=== PATIENT | male | born 1995 ===

== ENCOUNTER 2016-12-27 01:34 | Emergency (ER) | payer MEDICAID ==
[2016-12-27 01:49] VITALS: BP 127/69; PULSE 101; RESP 16; O2SAT 99
--- NOTE | 2016-12-27 02:17 | ED PDOC ---
HPI: Chest Pain Time Seen by Provider: 12/27/16 02:10 Chief Complaint (Nursing): Chest Pain Additional Complaint(s): 21yo M with PMHx migraines presents for chest pain. chest pain x1 hour, pressure like, sternal, q30 sec decreased to q2min, 6/10, no radiation, started after having migrain and myalgias to extremities which resolved. Denies smoking , drug use, FHx CAD/AK. Prior h/o chest pain 2012 with similar complaint. Denies fever, chills, n/v, cough, URI symptoms, reflux. Past Medical History Reviewed: Historical Data, Nursing Documentation, Vital Signs Vital Signs: Last Vital Signs Temp 98.9 F 12/27/16 01:48 Pulse 101 H 12/27/16 01:48 Resp 16 12/27/16 01:48 BP 127/69 12/27/16 01:48 Pulse Ox 99 12/27/16 02:31 - Medical History PMH: Migraine - Family History Family History: States: No Known Family Hx - Allergies Allergies/Adverse Reactions: Allergies Allergy/AdvReac Type Severity Reaction Status Date / Time No Known Allergies Allergy Verified 12/27/16 02:15 WIL Risk Score for UA/NSTEMI - WIL Risk Score Age > 64: NO 3 or more CAD Risk Factors: NO Known CAD (Stenosis greater than 50%): NO Aspirin use in past 7 days: NO Severe Angina: NO EKG ST changes greater than 0.5mm: NO Positive Cardiac Marker: NO WIL Score: 0 Risk %: 5% Curb-65 Severity Score - CURB-65 Severity Score Confusion: No Bun >19mg/dl (>7mmol/L): No Respiratory Rate greater than/equal to 30: No Systolic BP <90 or Diastolic BP less than/equal 60mmHg: No Age >64: No Curb-65 Score: 0 Percentage 30-day mortality: 0.6% Review of Systems ROS Statement: Except As Marked, All Systems Reviewed And Found Negative Cardiovascular: Positive for: Chest Pain Neurological: Positive for: Headache Physical Exam - Reviewed Nursing Documentation Reviewed: Yes Vital Signs Reviewed: Yes - Physical Exam Appears: Positive for: Well, No Acute Distress Head Exam: Positive for: ATRAUMATIC, NORMAL INSPECTION Skin: Positive for: Warm, Dry Cardiovascular/Chest: Positive for: Regular Rate, Rhythm. Negative for: Murmur Respiratory: Positive for: Normal Breath Sounds. Negative for: Crackles Gastrointestinal/Abdominal: Positive for: Bowel Sounds, Soft. Negative for: Tenderness Lymphatic: Positive for: Normal Exam. Negative for: Adenopathy Neurologic/Psych: Positive for: Alert, Oriented - Laboratory Results Result Diagrams: 12/27/16 02:26 12/27/16 02:26 - ECG O2 Sat by Pulse Oximetry: 99 Medical Decision Making Medical Decision Makin DDx anxiety, ACS, reflux, MSK CBC, BMP, troponin, U tox EKG NSR, no acute change CXR 0330 reassessment CBC-leukocytosis labs WNL: BMP, troponin, U tox CXR-no acute change d/c home FU PCP to [facility] care Disposition - Clinical Impression Clinical Impression: Atypical chest pain - Disposition Disposition Time: 03:44 Condition: STABLE Instructions: Noncardiac Chest Pain (ED)
[2016-12-27 02:42] LABS: BASO # 0.1 K/uL (0.0-0.2); BASO % 0.5 % (0.0-2.0); EOS % 0.1 % (0.0-4.0); HEMOGLOBIN 15.3 g/dL (12.0-18.0); LYMPH # 1.3 K/uL (1.0-4.3); LYMPH % 5.3 % (20.0-40.0); MEAN CELL VOLUME 87.8 fl (80.0-94.0); MEAN CORPUSCULAR HEMOGLOBIN 30.4 pg (27.0-31.0); MEAN CORPUSCULAR HGB CONC 34.6 g/dL (33.0-37.0); MEAN PLATELET VOLUME 8.4 fl (7.2-11.7); MONO # 1.2 K/uL (0.0-0.8); MONO % 4.8 % (0.0-10.0); NEUT # 22.3 K/uL (1.8-7.0); NEUT % 89.3 % (50.0-75.0); PLATELET COUNT 239 K/uL (130-400); RBC 5.04 Mil/uL (4.40-5.90); RED CELL DISTRIBUTION WIDTH 12.6 % (11.5-14.5)
[2016-12-27 03:00] LABS: BLOOD UREA NITROGEN 11 mg/dl (9-20); CALCIUM 9.7 mg/dL (8.4-10.2); GFR AFRICAN-AMERICAN > 60; GFR NON-AFRICAN AMERICAN > 60
[2016-12-27 03:10] LABS: BARBITURATES, UR NEGATIVE (NEGATIVE); BENZODIAZEPINES, UR NEGATIVE (NEGATIVE); OPIATES, UR NEGATIVE (NEGATIVE); PHENCYCLIDINE, UR NEGATIVE (NEGATIVE)
[2016-12-27 03:37] VITALS: TEMP 98.3
[2016-12-27 04:05] LABS: LYMPHOCYTE 5 % (20-50); MONOCYTE 5 % (0-10); NEUTROPHIL 90 % (42-75); PLATELET ESTIMATE NORMAL (NORMAL); TOTAL CELLS COUNTED 100
--- NOTE | 2016-12-27 10:59 | RAD ---
HISTORY: Chest pain COMPARISON: No prior. TECHNIQUE: Chest PA and lateral FINDINGS: LUNGS: No active pulmonary disease. PLEURA: No significant pleural effusion identified. No pneumothorax apparent. CARDIOVASCULAR: Normal. OSSEOUS STRUCTURES: No significant abnormalities. VISUALIZED UPPER ABDOMEN: Normal. OTHER FINDINGS: None. IMPRESSION: No acute cardiopulmonary disease.
--- NOTE | 2016-12-27 23:25 | CARD ---
APPROVED REPORT EKG Measurement Heart [id number] <Conclusion> Normal sinus rhythm Normal ECG
== END 2016-12-27 03:47 | disposition home or self-care (01) ==
LOC: H.ER 01:34
DX: R07.89 Other chest pain (principal)

== ENCOUNTER 2017-03-30 01:40 | Emergency (ER) | payer MEDICAID ==
[2017-03-30 01:51] VITALS: BP 133/78; PULSE 102; RESP 17; TEMP 98.6; O2SAT 100
--- NOTE | 2017-03-30 02:07 | ED PDOC ---
HPI: Eye Injury/Pain Time Seen by Provider: 03/30/17 02:00 Chief Complaint (Nursing): Eye Problem Chief Complaint (Provider): left eye irritation History Per: Patient History/Exam Limitations: no limitations Onset/Duration Of Symptoms: Hrs (2) Current Symptoms Are (Timing): Still Present Associated Symptoms: Pain Additional History Per: Patient Additional Complaint(s): 22 y/o male presents with left eye irritation x 2 hours. Patient states pain woke him from his sleep. Denies headache, eye injury, contact use, vision changes, foreign body exposure. Past Medical History Reviewed: Historical Data, Nursing Documentation, Vital Signs Vital Signs: Last Vital Signs Temp 98.6 F 03/30/17 01:49 Pulse 102 H 03/30/17 01:49 Resp 17 03/30/17 01:49 BP 133/78 03/30/17 01:49 Pulse Ox 100 03/30/17 01:49 - Medical History PMH: Migraine - Surgical History Surgical History: No Surg Hx - Family History Family History: States: No Known Family Hx - Home Medications Home Medications: Ambulatory Orders Medication Instructions Recorded Polymyxin/Trimethoprim Sulfate 2 drop OS Q6 #1 bottle 03/30/17 [Polytrim Ophth Soln] - Allergies Allergies/Adverse Reactions: Allergies Allergy/AdvReac Type Severity Reaction Status Date / Time No Known Allergies Allergy Verified 12/27/16 02:15 Review of Systems ROS Statement: Except As Marked, All Systems Reviewed And Found Negative Eyes: Positive for: Pain (left) Physical Exam - Reviewed Nursing Documentation Reviewed: Yes Vital Signs Reviewed: Yes - Physical Exam Appears: Positive for: Well, Non-toxic, No Acute Distress Head Exam: Positive for: ATRAUMATIC, NORMAL INSPECTION, NORMOCEPHALIC Eye Exam: Positive for: EOMI, PERRL, Conjunctival injection (left), Other. Negative for: Periorbital swelling, Periorbital tenderness Cardiovascular/Chest: Positive for: Regular Rate, Rhythm Respiratory: Positive for: Normal Breath Sounds Back: Positive for: Normal Inspection Extremity: Positive for: Normal ROM Neurologic/Psych: Positive for: Alert, Oriented - ECG O2 Sat by Pulse Oximetry: 100 - Progress ED Course And Treament: Left eye anesthesized with 2 drops tetracaine; fluro stain reveals no uptake Disposition - Clinical Impression Clinical Impression: Conjunctivitis - Patient ED Disposition Is Patient to be Admitted: No Counseled Patient/Family Regarding: Studies Performed, Diagnosis, Need For Followup, Rx Given - Disposition Referrals: South Alva MD [Staff Provider] - Disposition: Routine/Home Disposition Time: 02:34 Condition: STABLE Prescriptions: Polymyxin/Trimethoprim Sulfate [Polytrim Ophth Soln] 2 drop OS Q6 #1 bottle Instructions: Conjunctivitis (ED) Forms: [facility] (Maori)
== END 2017-03-30 02:42 | disposition home or self-care (01) ==
LOC: H.ER 01:40
DX: H10.9 Unspecified conjunctivitis (principal)

== ENCOUNTER 2017-04-21 02:57 | Emergency (ER) | payer MEDICAID ==
[2017-04-21 03:23] VITALS: BMI 29.2
[2017-04-21 03:27] VITALS: BP 123/61; PULSE 70; RESP 16; TEMP 98.1; O2SAT 98
--- NOTE | 2017-04-21 04:20 | ED PDOC ---
HPI: Eye Injury/Pain Time Seen by Provider: 04/21/17 03:30 Chief Complaint (Nursing): Eye Problem Chief Complaint (Provider): Eye Pain History Per: Patient History/Exam Limitations: no limitations Onset/Duration Of Symptoms: Hrs Current Symptoms Are (Timing): Still Present Additional Complaint(s): Yayo is a 22 y/o male with no medical history who presents to the ED with bilateral eye pain and itchiness after it woke him up from sleep. He was here about 1 month ago for similar symptoms and was given antibiotics for conjunctivitis, which alleviated the symptoms. Patient denies fever, URI, or rinorrhea. PMD: None Provided Past Medical History Reviewed: Historical Data, Nursing Documentation, Vital Signs Vital Signs: Last Vital Signs Temp 98.1 F 04/21/17 03:24 Pulse 70 04/21/17 03:24 Resp 16 04/21/17 03:24 BP 123/61 04/21/17 03:24 Pulse Ox 98 04/21/17 03:24 - Medical History PMH: Migraine - Surgical History Surgical History: No Surg Hx - Family History Family History: States: Unknown Family Hx - Home Medications Home Medications: Ambulatory Orders Medication Instructions Recorded Polymyxin/Trimethoprim Sulfate 2 drop OS Q6 #1 bottle 03/30/17 [Polytrim Ophth Soln] Polymyxin/Trimethoprim Sulfate 2 drop OU Q6 #1 bottle 04/21/17 [Polytrim Ophth Soln] - Allergies Allergies/Adverse Reactions: Allergies Allergy/AdvReac Type Severity Reaction Status Date / Time No Known Allergies Allergy Verified 04/21/17 03:22 Review of Systems ROS Statement: Except As Marked, All Systems Reviewed And Found Negative Constitutional: Negative for: Fever Eyes: Positive for: Pain, Other (Itchiness) ENT: Negative for: Nose Discharge, Nose Congestion Physical Exam - Reviewed Nursing Documentation Reviewed: Yes Vital Signs Reviewed: Yes - Physical Exam Appears: Positive for: Well, Non-toxic, No Acute Distress Head Exam: Positive for: ATRAUMATIC, NORMAL INSPECTION, NORMOCEPHALIC Skin: Positive for: Normal Color, Warm, Dry Eye Exam: Positive for: Conjunctival injection (slight, with watering). Negative for: Other (discharge, foreign body) Cardiovascular/Chest: Positive for: Regular Rate, Rhythm. Negative for: Murmur Respiratory: Positive for: Normal Breath Sounds. Negative for: Respiratory Distress Gastrointestinal/Abdominal: Positive for: Normal Exam, Bowel Sounds, Soft. Negative for: Tenderness Back: Positive for: Normal Inspection Extremity: Positive for: Normal ROM. Negative for: Pedal Edema, Deformity Neurologic/Psych: Positive for: Alert, Oriented. Negative for: Motor/Sensory Deficits - ECG O2 Sat by Pulse Oximetry: 98 (RA) Pulse Ox Interpretation: Normal Medical Decision Making Medical Decision Making: Time: 3:44 Initial Impression: Conjunctivitis Initial Plan: --Fluorescence stain showed no uptake bilaterally --Patient will be treated for conjunctivitis and was instructed to follow up with dental instrument maker. Scribe Attestation: Documented by Milo Gonzalez, acting as a scribe for Cirilo Smiley MD Provider Scribe Attestation: All medical record entries made by the Scribe were at my direction and personally dictated by me. I have reviewed the chart and agree that the record accurately reflects my personal performance of the history, physical exam, medical decision making, and the department course for this patient. I have also personally directed, reviewed, and agree with the discharge instructions and disposition. Disposition - Clinical Impression Clinical Impression: Conjunctivitis - Patient ED Disposition Is Patient to be Admitted: No Counseled Patient/Family Regarding: Studies Performed, Diagnosis, Need For Followup - Disposition Referrals: South Alva MD [Staff Provider] - Disposition: Routine/Home Disposition Time: 06:00 Condition: IMPROVED Additional Instructions: follow up with opthalmologist in 1-2 days return to the ED with any worsening or concerning symptoms Prescriptions: Polymyxin/Trimethoprim Sulfate [Polytrim Ophth Soln] 2 drop OU Q6 #1 bottle Instructions: Conjunctivitis (ED) Forms: [facility] (Greek) - POA Present On Arrival: None
== END 2017-04-21 04:45 | disposition home or self-care (01) ==
LOC: H.ER 02:57
DX: H10.9 Unspecified conjunctivitis (principal)